=== PATIENT | female | born 1985 | race Caucasian/White ===

== ENCOUNTER 2017-02-05 01:53 | Emergency (ER) | payer BC, OTHER ==
[~2017-02-05] VITALS: Ht 157.5 cm; Wt 54.6 kg
[2017-02-05 01:57] VITALS: BP 115/81
[2017-02-05] MEDS ORDERED: DULCOLAX5 MG PO (04:44)
[2017-02-05] MEDS ORDERED: EPSOM SALT120 GM MC (04:44)
[2017-02-05] MEDS ORDERED: PREPARATION H C51 GM PR (04:44)
[2017-02-05 05:33] LABS: BILIRUBIN NEGATIVE; BLOOD NEGATIVE; COLOR YELLOW ((YELLOW)); GLUCOSE (STRIP) NEGATIVE; KETONES 5; LEUKOCYTES NEGATIVE; NITRITE NEGATIVE; PROTEIN (STRIP) NEGATIVE; SPECIFIC GRAVITY 1.031 (1.000-1.030)
[2017-02-05 05:40] LABS: ADD MIUA? NO; UCUL ADDED? NO
== END 2017-02-05 06:26 | disposition home or self-care (01) ==
LOC: EME 01:53
PROVIDERS: Emergency Medicine
DX: K64.9 Unspecified hemorrhoids (principal)
CPT/HCPCS: 81003; 99281; 99284